=== PATIENT | male | born 1995 | race African-American/Black ===

== ENCOUNTER 2023-05-18 08:29 | Outpatient (AMB) | payer OTHER, SELFPAY ==
--- NOTE | 2023-05-18 08:56 | AM.OFFWIN_ITS ---
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 The patient has just and listed in Health insurance and now has a primary care provider here at this office. His 1st visit is June 08. He said it is occasionally uncomfortable but in general does not cause constant pain. He denies any swelling or penile discharge. He is sexually active but has had no difficulty or pain during intercourse. PFSH Social History Patient Tobacco Use Status: Current everyday Tobacco user Review of Systems Reports scrotal swelling (left testicular mass) Skin/Breast Reports lesions Physical Exam Vital Signs: Last Vital Signs Temp 97.6 F 05/18/23 08:57 Pulse 89 05/18/23 08:57 BP 112/70 05/18/23 08:57 Pulse Ox 99 05/18/23 08:57 Oxygen Delivery Method Room Air 05/18/23 08:57 BMI result Body Mass Index 20.2 Scrotum: scrotal mass on the left mobile, firm and tender (very mild tenderness) Testes: testicular mass on the left Assessment & Plan Assessment & Plan (1) Testicular mass: Code(s): N50.89 - Other specified disorders of the male genital organs Plan: see plan Plan This patient but will be scheduled for an ultrasound of his scrotum to examined the scrotal mass. He has a follow-up visit with his PCP June 08. This patient was discussed with Dr. Carlson Orders: Orders US scrotum Today N50.89 - Other specified disorders of the male genital organs Coding Level of Care Code New Pt Level 3 (23870) Diagnoses Testicular mass N50.89 Time Spent (min) 20
[2023-05-18 08:57] VITALS: BP 112/70; PULSE 89; TEMP 36.4; O2SAT 99; BMI 20.2
== END 2023-05-18 09:42 | disposition home or self-care (01) ==
PROVIDERS: Visit Provider Physician Assistant Medical
DX: N50.89 Other specified disorders of the male genital organs (principal)
CPT/HCPCS: 99203

== ENCOUNTER 2023-05-18 09:37 | Outpatient (REF) | payer OTHER, SELFPAY ==
--- NOTE | ~2023-05-18 | US_ITS ---
EXAMINATION: US SCROTUM CLINICAL INFORMATION: Left testicular mass. COMPARISON: None available. TECHNIQUE: A sonogram of the scrotum was performed assessing tamayo-scale appearance and color Doppler flow. Spectral Doppler analysis of the arterial and venous flow were performed in the testes bilaterally. FINDINGS: RIGHT: Right testicle measures 4.8 x 2.04 x 3.35 cm, volume 15.7 mL. No focal testicular parenchymal lesions are visualized. There are punctate echogenic foci question microlithiasis.. Spectral Doppler analysis of the arterial and venous flow is normal in the right testis. Right epididymal head is normal in size. There is a small hydrocele. No varicocele is seen. Right epididymal Dopple low is LEFT: Left testicle measures 4. 3.8 x 1.8 x 3.20 cm and volume 11.6 mL. No focal testicular parenchymal lesions are visualized. There are punctate scattered echogenic areas question microlithiasis. Spectral Doppler analysis of the arterial and venous flow is in the left testis. Left epididymalnormal in size.l in size. There is a small left hydrocele. No or varicocele is seen. Left epididymal Doppler flow is normal. There is a hypoechoic area adjacent to the left epidural head measuring 0.90 x 0.93 x 0.95 cm question complex exophytic epididymal cyst. US/US scrotum Impression: Bilateral microlithiasis but otherwise normal vascular flow to both testes on Doppler exam. Bilateral small hydroceles. Complex lesion adjacent to the left epididymal head, ? Complex exophytic epididymal cyst
== END 2023-05-18 09:38 | disposition home or self-care (01) ==
LOC: HO.HMGCX 09:37
PROVIDERS: PCP Nurse Practitioner Primary Care; Visit Provider Physician Assistant Medical
DX: N50.89 Other specified disorders of the male genital organs (principal)
CPT/HCPCS: 76870

== ENCOUNTER 2023-06-17 15:18 | Outpatient (AMB) | payer OTHER, SELFPAY ==
[2023-06-17 15:21] VITALS: BP 124/76; PULSE 93; O2SAT 98; BMI 20.2
--- NOTE | 2023-06-17 15:21 | MHC.PC.OV ---
Vital Signs 06/17/23 15:21 Height 6 ft Weight 149 lb BMI 20.2 BP 124/76 Blood Pressure Location Rt brachial Position Sitting Pulse 93 Pulse Source Pulse Oximeter Pulse Oximetry (%) 98 Oxygen Delivery Method Room Air Intake Visit Reasons: Est. Care Intake Note: Pt is here to est care Allergies No Known Allergies Allergy (Verified 06/17/23 15:32) Medication List - Last Reconciled 06/17/23 by NIECY Mendoza No Known Home Meds Tobacco use date assessed: 06/17/23 Dental Screening Dental Screen Date: 06/17/23 Did you have a dental visit in the last 12 months?: No Did you have a dental problem in the last 6 months where you did not have access to dental care?: No Was dental information given to patient?: No HPI HPI Comments History of Present Illness Details Patient is a 27-year-old male who I am meeting for the 1st time having a physical exam. 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 He states that for his job 6 years ago he had to get up-to-date on immunizations. Declining influenza vaccine today. He was seen in our walk-in clinic 2 weeks prior for testicular mass on his left testicle. He had ultrasound which demonstrated bilateral hydrocele and question of epididymal cyst. Patient states that he does not have discomfort unless he is sitting or lying down in certain positions. He states generally he does not have any discomfort. Patient is not have any dysuria or discharge. Patient denies fever, numbness, tingling. Patient does not use any medication for relief. Will refer to Urology due to question of epididymal cyst. Patient states he is also experiencing episodes of anxiety during the day. He says he specially feels anxious during work. Denies SI/HI. States that he is able to eat and drink, and he is able to get sleep. He states that anxiety can happen regardless of the situation. He is normally just deals with anxiety but is experiencing them with greater frequency. Patient would like to start medication for this. Will start on Lexapro. Patient will have full labs drawn. Will follow-up in 6 weeks. 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 1. Little interest or pleasure in doing things: not at all 2. Feeling down, depressed, or hopeless: more than half the days 3. Trouble falling or staying asleep, or sleeping too much: several days 4. Feeling tired or having little energy: several days 5. Poor appetite or overeating: not at all 6. Feeling bad about yourself - or that you are a failure or have let yourself or your family down: several days 7. Trouble concentrating on things, such as reading the newspaper or watching television: not at all 8. Moving or speaking so slowly that other people could have noticed. Or the opposite - being so fidgety or restless that you have been moving around a lot more than usual: not at all 9. Thoughts that you would be better off or of hurting yourself in some way: not at all Total score: 5 Depression Screening Interpretation: Negative Depression Screening Done: Yes Source: Developed by Drs. Leroy Kraft, Gloria Rodgers, Tray Palencia and colleagues, with an educational abisai from [employer]. Thrive Questionnaire Date Thrive assessed: 06/17/23 I am a: Patient What is your living situation today?: I have a steady place to live Within the past 12 months, did the food you bought not last and you didn't have the money to get more?: Never true Within the past 12 months, did you worry whether your food would run out before you got money to buy more?: Never true Do you have trouble paying for medicines?: No Do you have trouble getting transportation to medical appointments?: No Do you have trouble paying your heating and electricity bill?: No Do you have trouble taking care of your child, family member or friend?: No Do you have trouble with day-to-day activities such as bathing, preparing meals, shopping, managing finances, etc.?: No Are you currently unemployed and looking for a job?: No Are you interested in more education?: Yes THRIVE Score: 0 AUDIT C Alcohol Use Questionnaire (AUDIT-C) 1. How often do you have a drink containing alcohol?: 4 or more times a week 2. How many drinks containing alcohol do you have on a typical day when you are drinking?: 3 or 4 3. How often do you have six or more drinks on one occasion?: Monthly Total Score: 7 SHANTELLE-7 AMB Questionnaire SHANTELLE-7 Date SHANTELLE - 7 assessed: 06/17/23 Feeling nervous, anxious, or on edge: 3 = Nearly every day Not being able to stop or control worryin = Nearly every day Worrying too much about different things: 3 = Nearly every day Trouble relaxin = Not at all Being so restless that it is hard to sit still: 0 = Not at all Becoming easily annoyed or irritable: 3 = Nearly every day Feeling afraid as if something awful might happen: 1 = Several days Total SHANTELLE-7 score (0-4 normal; 5-9 mild; 10-14 moderate; 15-21 severe): 13 Source: Developed by Drs. Leroy Kraft, Gloria Rodgers, Tray Palencia and colleagues, with an educational abisai from [employer]. SHANTELLE-7 Assessment Billing SHANTELLE-7 Assessment Tool: SHANTELLE-7 Assessment 28391 (Patient starting Lexapro 5 mg.) Review of Systems Const All systems reviewed & are unremarkable except as noted in HPI and below Physical exam (Primary Care) Care Plan Goal for BP management: Vital signs reviewed stable. Tobacco/Smoking Status: Tobacco use Status Patient Tobacco Use Status Current everyday Tobacco 06/17/23 15:21 Depression Screening Interpretation: Negative Const General: no acute distress Nutritional Appearance: average body habitus Orientation/consciousness: patient oriented x3 Limitations: no limitations HENMT Head: Yes normal to inspection and Yes normocephalic Ears: TM's normal bilaterally General nose exam: Normal external nose present and Normal septum present Face and sinus: Yes normal facial exam Mouth: Normal oral and palatal mucosa present Eyes General: appearance normal, both eyes and all related structures Sclerae: sclerae normal Corneas: corneas normal Pupils: Equal, round and reactive pupils present EOM: EOMs intact bilaterally Direct Ophthalmoscopy: normal light reflex and no photophobia Neck Neck: Yes normal visual inspection, Yes full ROM and Yes no lymphadenopathy Chest Chest palpation & inspection: normal inspection of the chest Resp Effort & Inspection: normal respiratory effort Auscultation: clear to auscultation bilaterally Cardio Rate: regular rate Rhythm: regular rhythm Heart sounds: S1 normal heart sound present and S2 normal heart sound present GI Inspection: Yes normal to inspection Percussion: Yes normal to percussion Auscultation: normal bowel sounds Rectal Exam - Male: Yes deferred General: Yes no CVA tenderness Male General Exam: Yes Genital lesions present (Palpable tender mass left testicle) and Yes tenderness (Left testicle on palpation.) Penis: normal penis and Genital lesions present (Palpable tender mass left testicle) Meatus: meatus normal Scrotum: scrotum normal Testes: mass on the left soft and tender Back/Spine/Pelvis Back: no CVA tenderness Skin General skin exam: no rashes or lesions noted Neuro General: patient oriented x3 Cranial nerves: Yes CN's II-XII intact bilaterally and Yes Equal, round and reactive pupils present Cognition (Neuro): normal cognition Motor exam (neuro): 5/5 motor strength present throughout Extrem General: Yes normal to inspection and Yes full ROM Psych Thought process: Normal thought process present Thought content: Normal thought content present Insight: Good insight present (Psych) Judgement: Good judgement present (Psych) Assessment and Plan Assessment & Plan (1) Bilateral hydrocele: Comment: Patient educated the hydrocele normally reabsorbed into the body. Will watch and wait Code(s): N43.3 - Hydrocele, unspecified (2) Testicular mass: Comment: Patient will have Urology referral due to testicular mass on ultrasound. Question epidermal cyst? Code(s): N50.89 - Other specified disorders of the male genital organs (3) Anxiety: Comment: Patient is declining therapy at this time. Will start on Lexapro 5 mg. Patient has been educated on side effects of these medications. Patient states he understands. Patient knows not to stop the medication abruptly. Code(s): F41.9 - Anxiety disorder, unspecified Plan: Take your medications as prescribed. If you were prescribed antibiotics today, it is important that you take your medication to their entirety, do not skip any doses, do not finish them early. Follow-up with your primary care provider this week. Return to the emergency department with new or worsening symptoms. Such as fevers, chills, chest pain, shortness of breath, nausea, vomiting, dizziness, headache, vision changes, lethargy In case of emergency call 911 Plan Six week follow-up for medication check Orders: Orders Comprehensive Met. Panel Today Z91.89 - Other specified personal risk factors, not elsewhere classified Vitamin B6 Today Z13.21 - Encounter for screening for nutritional disorder Complete Blood Count Auto Diff Today Z13.0 - Encounter for screening for diseases of the blood and blood-forming organs and certain disorders involving the immune mechanism Lipid Panel Today Z13.220 - Encounter for screening for lipoid disorders Vitamin D 25-OH (D2 and D3) Today Z13.21 - Encounter for screening for nutritional disorder Vitamin B12 Today Z91.89 - Other specified personal risk factors, not elsewhere classified UA CC w/rflx Micro + Cult Today Z13.89 - Encounter for screening for other disorder TSH reflex Free T4 Today Z13.29 - Encounter for screening for other suspected endocrine disorder Medications: New escitalopram oxalate (Lexapro) 5 mg PO DAILY 90 tabs 0RF Coding Level of Care Code Est Pt Prev Care 18-39y(01924) Diagnoses Bilateral hydrocele N43.3 Testicular mass N50.89 Anxiety F41.9 Additional Codes SHANTELLE-7 Assessment Billing - SHANTELLE-7 Assessment Tool: SHANTELLE-7 Assessment 89394 ([id number]) Time Spent (min) 35
== END 2023-06-17 15:56 | disposition home or self-care (01) ==
PROVIDERS: PCP Nurse Practitioner Primary Care; Visit Provider Nurse Practitioner Primary Care
DX: Z00.00 Encounter for general adult medical examination without abnormal findings (principal); N43.3 Hydrocele, unspecified; N50.89 Other specified disorders of the male genital organs; F41.9 Anxiety disorder, unspecified
CPT/HCPCS: 99395

== ENCOUNTER → 2024-09-25 06:37 | Outpatient (BNV) | payer OTHER, SELFPAY | PROVIDERS: Emergency Provider Emergency Medicine; PCP Nurse Practitioner Primary Care; Visit Provider Radiology Diagnostic Radiology | DX: S69.91XA Unspecified injury of right wrist, hand and finger(s), initial encounter (principal) | CPT/HCPCS: 73110; 73130 ==

== ENCOUNTER 2024-09-25 07:15 | Emergency (ER) | payer OTHER, SELFPAY ==
--- NOTE | ~2024-09-25 | XR_ITS ---
EXAMINATION: XR HAND/WRIST, RIGHT CLINICAL INFORMATION: punched wall COMPARISON: None available. TECHNIQUE: PA, lateral, and oblique views of the right hand, 4 views right wrist FINDINGS: No fracture, dislocation, or suspicious bone lesion. Normal alignment. Normal joint spaces. Carpal bones intact and normally aligned . Normal soft tissues. XR/XR hand RT min 3V IMPRESSION: No acute bony or soft tissue abnormalities of the right hand and wrist. Electronically signed by: Joe Dickson MD 09/25/2024 08:04 AM EDT
--- NOTE | ~2024-09-25 | XR_ITS ---
EXAMINATION: XR HAND/WRIST, RIGHT CLINICAL INFORMATION: punched wall COMPARISON: None available. TECHNIQUE: PA, lateral, and oblique views of the right hand, 4 views right wrist FINDINGS: No fracture, dislocation, or suspicious bone lesion. Normal alignment. Normal joint spaces. Carpal bones intact and normally aligned . Normal soft tissues. XR/XR wrist RT min 3V IMPRESSION: No acute bony or soft tissue abnormalities of the right hand and wrist. Electronically signed by: Jeo Dickson MD 09/25/2024 08:04 AM EDT
[2024-09-25 07:20] VITALS: BP 133/78; PULSE 85; RESP 18; TEMP 36.4; O2SAT 100; BMI 20.2
--- NOTE | 2024-09-25 07:45 | ED_ITS ---
HPI - Extremity Problem General Chief complaint: Extremity Injury, Upper Stated complaint: R Wrist Injury 2 Days Ago Time Seen by Provider: 09/25/24 07:45 History of Present Illness ED Provider: Aislinn CHIN Narrative: The patient is an ordinarily healthy 28-year-old male who comes for evaluation of an injury to his right arm. He says that 3 days ago on Wednesday he punched a wall. He says this was accidental. He was horsing around with a friend. He says that his fist connected with a piece of dry wall and he thinks there was a stead behind the dry wall. The patient came to the emergency room on Wednesday but there was a long wait and he left without imaging or evaluation. He comes today because he has ongoing pain primarily at the wrist. 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 He does not feel he can lift anything with the hand because of pain. Related Data Previous Rx's ?Medication ?Instructions ?Recorded escitalopram oxalate 5 mg tablet 5 mg PO DAILY #90 tab s 06/17/23 (Lexapro) Allergies Allergy/AdvReac Type Severity Reaction Status Date / Time No Known Allergies Allergy Verified 09/25/24 07:22 Review of Systems Review of Systems: Yes all other systems are reviewed and are negative [facility] Family History Family History Maternal Grandmother Diabetes mellitus Social History Social History Housing: Apartment Patient Tobacco Use Status: Current everyday Tobacco user Cigarettes Per Day: 10 Smoked in Last 30 Days: Yes e-Cigarette/Vaping Use: Never Used Second Hand Smoke Exposure: No Use of substances other than those prescribed or required for medical reasons: No Advance Directives: No Advance Directives Information Provided: Yes service: Yes Current occupational status: employed 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 He is awake, alert, pleasant, cooperative. HEENT: Other: The face is symmetrical. ?Mucous membranes moist. Eyes: Other: Pupils are round equal, conjunctivae are clear, extraocular movements intact Neck: Neck: Yes normal visual inspection Resp: Effort & Inspection: normal respiratory effort Skin: Other: The skin is intact. There seems to be some mild generalized soft tissue swelling to the dorsum of the wrist. Neuro: Other: The patient is awake and alert with a normal mental status. He has intact motor and sensory function of the right hand. Extrem: Other: There is some subtle soft tissue swelling to the dorsum of the right wrist. The fingers do not appear injured. The metacarpals did not appear obviously injured. He has been generalized tenderness to the dorsum of the wrist and some slight snuffbox tenderness. Medical Decision Making Medical Decision Making MDM Narrative: The patient is a very pleasant an ordinarily healthy 28-year-old male who is here for evaluation of right wrist pain after punching wall 3 days ago. X-rays of the hand and wrist were done which are negative. He has some mild swelling to the dorsum of the wrist and some generalized tenderness including some mild tenderness to the snuffbox area. Out of an abundance of caution he was placed in a thumb spica splint and should follow up with Orthopedics. He was given a work note. Procedures Orthopedic Splinting/Casting Injury #1: Side: right Upper Extremity Injury Location: wrist Upper Extremity Immobilizer: thumb spica Additional Comments: Splint was fashioned using cast padding, Orthoglass, and Stephen bandages. The patient tolerated the application of the splint well and remained neurovascularly intact after application of the splint. Discharge Plan Discharge Clinical Impression: Right wrist sprain, Tenderness of anatomical snuffbox Patient Disposition: Home, Self-Care Instructions: Wrist Injury (ED) Additional Instructions: The x-rays of your right wrist are negative. You seemed to have some tenderness over a portion of the wrist that we call the ?snuffbox. ? This is associated with the possibility of an injury to a small bone called the navicular bone ( also called the scaphoid bone). Therefore in order to protect against this possibility you has been placed in a splint which we call a thumb spica splint. Please wear the splint until you follow up with the orthopedic office for additional evaluation and are cleared for removal of the splint. Keep the hand elevated. Avoid activities which exacerbate your pain. You may use ibuprofen and acetaminophen as needed for pain. Call the orthopedic office today for a follow up appointment in several days. Return to the emergency room if worse. Prescriptions: No Action escitalopram oxalate [Lexapro] 5 mg tablet 5 mg PO DAILY Qty: 90 0RF Referrals: [facility] [place]Provider Group] Referral Note: Wrist injury, snuffbox tenderness Stand Alone Forms: Work/School Release Print Language: Upper Sorbian
--- OUTSIDE RECORDS SUMMARY | 2024-09-25 08:21 | XMS_ITS | Clinical Summary ---
[facility] [address] [place] [address] Care Team Providers Care Data Modeler Name Role Phone Aubrey Hill MD Primary Care Provider Social History Tobacco Use Types Packs/Day Years Used Date Smoking Tobacco: Never Assessed Sex and Gender Information Value Date Recorded Sex Assigned at Not on file Legal Sex Male 8:44 PM EST Gender Identity Not on file Sexual Orientation Not on file Plan of Treatment Health Maintenance Due Date Last Done Comments DTaP,Tdap,and Td Vaccines (1 - Tdap) 11/17/2014 Hepatitis B Vaccines (1 of 3 - 19+ 3-dose series) 11/17/2014 COVID-19 Vaccine (2023-2 5 season) 2023 Influenza Vaccine (Season Ended) 2024 HIB Vaccines Aged Out No longer eligi ble based on patient's age to complete this topic HPV Vaccines Aged Out No longer eligi ble based on patient's age to complete this topic Hepatitis A Vaccines Aged Out No long er eligible based on patient's age to complete this topic IPV Vaccines Aged Out No longer eligi ble based on patient's age to complete this topic MMR Vaccines Aged Out No longer eligi ble based on patient's age to complete this topic Meningococcal ACWY Vaccine Aged Out N o longer eligible based on patient's age to complete this topic Meningococcal B Vaccine Aged Out No l onger eligible based on patient's age to complete this topic Pneumococcal Vaccine: Pediat rics (0 to 5 Years) and At-Risk Patients (6 to 64 Years) Aged Out No longer eligible b ased on patient's age to complete this topic RSV Immunization Patients Un anurag 20 months Aged Out No longer eligible b ased on patient's age to complete this topic Varicella Vaccines Aged Out No longer eligible based on patient's age to complete this topic Care Teams Data Modeler Relationship Specialty Start Date End Date Aubrey Hill MD [address] [place] [id number] PCP - General 08/21/21
[2024-09-25 08:47] VITALS: BP 130/76; PULSE 78; RESP 18; O2SAT 98
[2024-09-25 08:48] VITALS: BP 130/76; PULSE 78; RESP 18; TEMP 36.6; O2SAT 98
== END 2024-09-25 08:49 | disposition home or self-care (01) ==
PROVIDERS: Emergency Provider Emergency Medicine; PCP Nurse Practitioner Primary Care
DX: S63.501A Unspecified sprain of right wrist, initial encounter (principal); M25.531 Pain in right wrist; F17.210 Nicotine dependence, cigarettes, uncomplicated; X58.XXXA Exposure to other specified factors, initial encounter; Y93.9 Activity, unspecified; Y92.9 Unspecified place or not applicable; Y99.8 Other external cause status
CPT/HCPCS: 29130; 73100; 73110; 73120; 73130; 99284

== ENCOUNTER 2024-09-29 09:13 | Outpatient (REF) | payer OTHER, SELFPAY ==
--- NOTE | ~2024-09-29 | XR_ITS ---
EXAMINATION: XR WRIST, RIGHT CLINICAL INFORMATION: M79.641 - Pain in right hand COMPARISON: September 25, 2024. TECHNIQUE: PA, lateral, and oblique views of the right wrist. Scaphoid projection FINDINGS: Carpal bones are intact. Alignment is normal. Distal radius and ulna are intact. Metacarpal bones are intact. The included phalanges are intact. No lytic or blastic lesions. No subcutaneous emphysema. XR/XR wrist RT w scaphoid IMPRESSION: Normal x-ray, right wrist. Electronically signed by: Jonathan Cruz MD 09/29/2024 09:55 AM EDT
--- OUTSIDE RECORDS SUMMARY | 2024-09-29 09:33 | XMS_ITS | Clinical Summary ---
[facility] [address] [place] [address] Care Team Providers Care Food Service Representative Name Role Phone Aubrey Hill MD Primary [...] age to complete this topic Care Teams Food Service Representative Relationship Specialty Start Date End Date Aubrey Hill MD [address] [place] [id number] PCP - General 08/21/21
== END 2024-09-29 09:14 | disposition home or self-care (01) ==
LOC: HO.HOSX 09:13
DX: M79.641 Pain in right hand (principal)
CPT/HCPCS: 73110

== ENCOUNTER 2024-09-29 09:31 | Outpatient (AMB) | payer OTHER, SELFPAY ==
[2024-09-29 09:36] VITALS: BMI 20.2
--- NOTE | 2024-09-29 09:36 | MHC.OFFVIS ---
Vital Signs 09/29/24 09:36 Height 6 ft Weight 149 lb BMI 20.2 Intake Visit Reasons: ED f/u RT wrist injury ? scaphoid fx Intake Note: Rosa is a right hand dominant 28 year old male who presents today for an ED follow-up of a right hand wrist scaphoid fx. On 09/22/24 per ED note, patient accidentally punched a wall, injuring his hand/wrist. Seen in ED 3 days after where xrays were taken, patient was splinted, ED was concerned for scaphoid fx. Patient states having pain in lifting and twisting motion. Patient reports he has taken Advil for pain, with no relief. Denies any numbness or tingling. Allergies No Known Allergies Allergy (Verified 09/29/24 09:46) HPI HPI ED f/u RT wrist injury ? scaphoid fx: Details: Rosa is a right hand dominant 28 year old male who presents today for an ED follow-up of a right hand wrist scaphoid fx. On 09/22/24 per ED note, patient accidentally punched a wall, injuring his hand/wrist. Seen in ED 3 days after where xrays were taken, patient was splinted, ED was concerned for scaphoid fx. Patient states having pain in lifting and twisting motion. Patient reports he has taken Advil for pain, with no relief. Denies any numbness or tingling. 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 Neuro: Normal sensation of the tips of all digits of the right hand at this time Vascular: Cap refill brisk Pain: Tenderness to palpation of right ulnar styloid No tenderness to palpation of right anatomical snuffbox No tenderness to palpation of right scaphoid tubercle No tenderness to palpation of right distal radius Discomfort of the ulnar aspect of the right wrist with range of motion ROM: Full and intact range of motion of the right wrist However, there is visible and palpable snapping with pronation and supination at the ulnar styloid Stable DRUJ Skin: No lacerations or abrasions. General: No ecchymosis, erythema, or evidence of infection. Psych: Appears grossly normal Affect normal Attitude cooperative Results Reviewed Results Reviewed: X-rays obtained in the office today and independently reviewed by me, Jose Luis Molina PA-C, demonstrate no fracture or acute bony abnormality of the right wrist. Assessment & Plan Assessment & Plan (1) Subluxation of extensor carpi ulnaris tendon: Code(s): S63.093A - Other subluxation of unspecified wrist and hand, initial encounter Category: Medical Plan 1. Right ECU tendon subluxation Patient is educated about this condition Patient is educated about the typical treatment course At this time, patient is provided with a Velcro wrist splint to be worn with daytime activities and when his wrist is bothering him Patient is also referred to Dr. Frances for surgical consultation for ECU subluxation Patient is amenable to this plan Follow-up in [address] Frances for reassessment, sooner with any acute concerns Orders: Orders XR wrist RT w scaphoid Today M79.641 - Pain in right hand Coding Level of Care Code New Pt Level 3 (25396) Diagnoses Subluxation of extensor carpi ulnaris tendon S63.093A
== END 2024-09-29 10:19 | disposition home or self-care (01) ==
LOC: HO.HOS 09:32
PROVIDERS: PCP Nurse Practitioner Primary Care
DX: S63.091A Other subluxation of right wrist and hand, initial encounter (principal)
CPT/HCPCS: 99203

== ENCOUNTER → 2024-09-29 09:36 | Outpatient (BNV) | payer OTHER, SELFPAY | PROVIDERS: Visit Provider Radiology Diagnostic Radiology | DX: M79.641 Pain in right hand (principal) | CPT/HCPCS: 73110 ==

== ENCOUNTER 2024-10-13 10:11 | Outpatient (AMB) | payer OTHER, SELFPAY ==
--- NOTE | 2024-10-13 10:20 | A.OFFVIS_ITS ---
Intake Visit Reasons: OV - Right ECU Sublulation Intake Note: Rosa is a right hand dominant 28 year old male who presents today for a follow-up of a right hand wrist scaphoid fx. On 09/22/24 per ED note, patient accidentally punched a wall, injuring his hand/wrist. Seen in ED 3 days after where xrays were taken, patient was splinted, ED was concerned for scaphoid fx. Patient states having pain in lifting and twisting motion. Patient reports he has taken Advil for pain, with no relief. Denies any numbness or tingling. Last seen with Benita Amaya who provided patient with a Velcro wrist splint to be worn with daytime activities and when his wrist is bothering him . Patient reports pain with dorsal and palmar flexion Patient is also referred to Dr. Frances for surgical consultation for ECU subluxation. 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 Involves a lot of heavy repetitive lifting. On about 09/22/2024 the patient reportedly punched a wall sustaining an injury to his right wrist. There was some concern about snuffbox tenderness initially and he was referred to us for our evaluation. The patient notes that he is doing a little better but he still gets pain in the ulnar aspect of his wrist that then radiates around to the radial side of his wrist. Appreciate a clicking or snapping sensation sometimes. 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 He can make a tight fist and extend all of his digits. No locking or catching. Sensation intact to all digits and cap refill is brisk. He had no tenderness about the distal radius DRUJ or distal ulna. No snuffbox or scaphoid tubercle tenderness today. No swelling, ecchymosis or erythema. He demonstrates that he gets pain in the ulnar dorsal aspect of his wrist but that the pain also radiates across the dorsal aspect of the wrist to the radial side of the wrist. With prono-supination I appreciated a clicking sensation but did not see any actual subluxation of the ECU tendon today. Mild tenderness at the insertion of the ECU tendon Smooth wrist flexion extension and prono-supination without pain. Radiographs: 3 views of the right wrist plus a scaphoid view were obtained on 09/29/2024 and reviewed by me today in clinic. They do not appear to show any fractures or dislocations. Assessment & Plan Assessment & Plan (1) Right wrist pain: Code(s): M25.531 - Pain in right wrist Category: Medical Plan Assessment and plan: 1. Right dorsal wrist pain Etiology unclear. There is a clicking sensation but I did not appreciate any actual subluxation of the ECU tendon today. There had also been question of an occult scaphoid fracture. I am ordering an MRI to evaluate his right wrist pain. We will hopefully get this done within the next week and I will see him back to review this study with a 30 minute appointment. He will continue to wear his Velcro wrist splint which she feels is helpful. I told him to avoid any heavy lifting or forceful prono-supination at this time. We are keeping him out of work until he follows up with the MRI hopefully within 2 weeks. Orders: Orders MR wrist RT wo con Today M25.531 - Pain in right wrist Coding Level of Care Code Est Pt Level 3 (41214) Diagnoses Right wrist pain M25.531
--- OUTSIDE RECORDS SUMMARY | 2024-10-13 10:41 | XMS_ITS | Clinical Summary ---
Author Organization [facility] Address [address] [place] [address] Care Team Providers Care Disc Jockey Name Role Phone Aubrey Hill MD Primary [...] Vaccine (2023-2 5 season) 2023 Influenza Vaccine (#1) 2024 HIB Vaccines Aged Out No longer [...] 5 Years) and At-Risk Patients (6 to 49 Years) Aged Out No longer eligible b ased on patient's age to complete this topic RSV Immunization Patients Un anurag 20 months Aged Out No longer eligible b ased on patient's age to complete this topic Varicella Vaccines Aged Out No longer eligible based on patient's age to complete this topic Care Teams Disc Jockey Relationship Specialty Start Date End Date Aubrey Hill MD [address] [place] [id number] PCP - General 08/21/21
== END 2024-10-13 11:06 | disposition home or self-care (01) ==
LOC: HO.HOS 10:12
PROVIDERS: Visit Provider Orthopaedic Surgery
DX: M25.531 Pain in right wrist (principal)
CPT/HCPCS: 99213

== ENCOUNTER 2024-10-17 19:15 | Outpatient (REF) | payer OTHER, SELFPAY ==
--- NOTE | ~2024-10-17 | MR_ITS ---
CLINICAL HISTORY: M25.531 - Pain in right wrist --- Additional Notes or Special Instructions: Eval right wrist pain MR right wrist without gadolinium Comparison: 09/29/2024 Findings: No acute fractures. No pathologic bone lesions. 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 No joint effusion. There is distal radioulnar joint subluxation, acuity indeterminate. Lunotriquetral and scapholunate ligaments are intact. There is edema and loss of visualization of the extensor carpi ulnaris tendon. No other tears of the flexor or extensor tendons. No triangular fibrocartilage complex tears. There is no thickening or bowing of the flexor retinaculum. Intact median and ulnar nerves. IMPRESSION: 1. Extensor carpi ulnaris tendon tear versus tendinopathy. Clinical follow-up recommended. 2. Possible distal radioulnar joint instability. Correlate clinically. This document has been electronically signed by: Justin Arita MD on 10/17/2024 22:36:01
== END 2024-10-17 19:16 | disposition home or self-care (01) ==
LOC: HO.MRI 19:15
PROVIDERS: Visit Provider Orthopaedic Surgery
DX: M25.531 Pain in right wrist (principal)
CPT/HCPCS: 73221

== ENCOUNTER → 2024-10-17 19:21 | Outpatient (BNV) | payer OTHER, SELFPAY | PROVIDERS: Visit Provider Specialist | DX: M25.531 Pain in right wrist (principal) | CPT/HCPCS: 73221 ==

== ENCOUNTER 2024-10-31 08:36 | Outpatient (AMB) | payer OTHER, SELFPAY ==
[2024-10-31 08:42] VITALS: BMI 20.2
--- NOTE | 2024-10-31 08:42 | A.OFFVIS_ITS ---
Vital Signs 10/31/24 08:42 Height 6 ft Weight 149 lb BMI 20.2 Intake Visit Reasons: O/V RT hand MRI review Intake Note: Rosa 28 yr old right hand dominant male, presents today for his MRI review of his right wrist pain. At his last visit he was advise to continue to wear his Velcro wrist splint and to avoid any heavy lifting or forceful prono-supination at this time. He was given a letter to remain out of work until he follows up with the MRI. Currently states his pain has improved, he is able to rotate his wrist with little pain but better over all. He continues to have pain if he over uses his hand. IMPRESSION: 1. Extensor carpi ulnaris tendon tear versus tendinopathy. Clinical follow-up recommended. 2. Possible distal radioulnar joint instability. Correlate clinically. Allergies No Known Allergies Allergy (Verified 10/31/24 08:46) HPI HPI O/V RT hand MRI review: Details: Rosa is a 28 year old right hand dominant man returns for an MRI review of his right wrist pain. On ~09/22/24 the patient reportedly punched a wall sustaining an injury to his right wrist. He says he is doing better and his pain & wrist function have improved . he continues to have pain with repetitive or overuse of his wrist, but he says he can rotate his wrist somewhat without pain, improved from before. The pain is in the ulnar aspect of his wrist that then radiates around to the radial side of his wrist. Appreciate a clicking or snapping sensation sometimes. 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 Current occupational exposures/hazards: No Cognitive needs: No Hearing needs: No Vision needs: No Review of Systems Const All systems reviewed & are unremarkable except as noted in HPI and below Physical Exam Vital Signs: BMI result Body Mass Index 20.2 Const General: no acute distress and alert Orientation/consciousness: patient oriented x3 Neuro General: patient oriented x3 Extrem Other: Evaluation of Right Upper Extremity: The patient is alert, oriented, and in no acute distress Neuro: Median, Ulnar, Radial nerves motor and sensory intact Vascular: Cap refill brisk ROM: He can make a right fist with good strength and no pain No locking or catching He had no tenderness about the distal radius DRUJ or distal ulna. DRUj stable on exam No snuffbox or scaphoid tubercle tenderness today. No swelling, ecchymosis or erythema. Mild tenderness over the ECU tendon, distal to distal ulna With prono-supination I appreciated a clicking/cracking sensation but did not see any actual subluxation of the ECU tendon today. Smooth wrist flexion extension and prono-supination without pain. Radiographs: 3 views of the right wrist plus a scaphoid view were obtained on 09/29/2024 and reviewed by me today in clinic. They do not appear to show any fractures or dislocations. Right wrist MRI: Findings: No acute fractures. No pathologic bone lesions. 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 No joint effusion. There is distal radioulnar joint subluxation, acuity indeterminate. Lunotriquetral and scapholunate ligaments are intact. There is edema and loss of visualization of the extensor carpi ulnaris tendon. No other tears of the flexor or extensor tendons. No triangular fibrocartilage complex tears. There is no thickening or bowing of the flexor retinaculum. Intact median and ulnar nerves. IMPRESSION: 1. Extensor carpi ulnaris tendon tear versus tendinopathy. Clinical follow-up recommended. 2. Possible distal radioulnar joint instability. Correlate clinically. This document has been electronically signed by: Justin Arita MD on 10/17/2024 Dr. Frances impression: The ECU tendon is held well within the distal ulna groove, the subsheath does not appear torn nor the ECU subluxated. There is inflammation about the ECU tendon distal to the distal ulna. He also has slight edema at base of 2nd-4th metacarpals Psych Appearance: grossly normal Affect: normal affect Attitude: cooperative Assessment & Plan Assessment & Plan (1) Tendinopathy of right wrist: Code(s): M67.931 - Unspecified disorder of synovium and tendon, right forearm Category: Medical (2) Right wrist pain: Code(s): M25.531 - Pain in right wrist Category: Medical Plan Assessment and plan: 1. Right ECU tendinopathy There is an occassional clicking sensation but I did not appreciate any actual subluxation of the ECU tendon today. No scaphoid fracture seen on MRI ECU subsheath does not appear torn on MRI I educated him about this condition and reviewed his MRI with him I discussed operative and non-operative treatment options I recommend activity modification & bracing, no operative intervention indicated at this time He will continue to wear his Velcro wrist splint with daily activities out of t he house, particularly with heavy lifting or repetitive activities. He will discontinue his splint at home He should continue to limit any heavy lifting or forceful prono-supination at this time. He will work on gentle ROM exercises at home, out of his splint. He says there is no light duty available at his job, and he feels he is able to return to full duty at this time He was given a note for work to return without restrictions, effective 11/01/24. He should continue to wear his splint at work if necessary for the next 4 weeks. He will follow up prn Scribed for Junie Frances MD by Mohit Diaz, bio medical technician, on 10/31/24 at 9:05 AM, EST. Coding Level of Care Code Est Pt Level 4 (38621) Diagnoses Tendinopathy of right wrist M67.931 Right wrist pain M25.531
--- OUTSIDE RECORDS SUMMARY | 2024-10-31 08:55 | XMS_ITS | Clinical Summary ---
[facility] Organization [facility] Address [address] [place] [address] Care Team Providers Care School Clerk Name Role Phone Aubrey Hill MD Primary [...] - 19+ 3-dose series) 11/17/2014 COVID-19 Vaccine ( - 2023-2 5 season) 2023 Depression Screening 04/05/2024 Influenza Vaccine (#1) 2024 HIB Vaccines Aged [...] age to complete this topic Care Teams School Clerk Relationship Specialty Start Date End Date Aubrey Hill MD [address] [place] [id number] PCP - General 08/21/21
== END 2024-10-31 09:14 | disposition home or self-care (01) ==
LOC: HO.HOS 08:37
PROVIDERS: Visit Provider Orthopaedic Surgery
DX: M67.931 Unspecified disorder of synovium and tendon, right forearm (principal); M25.531 Pain in right wrist
CPT/HCPCS: 99214

== ENCOUNTER 2024-11-21 11:03 | Outpatient (AMB) | payer OTHER, SELFPAY ==
--- NOTE | 2024-11-21 11:57 | MHC.OFFVIS ---
Intake Visit Reasons: OV- Right hand Pain Intake Note: Rosa 29 yr old malepresents today for his right hand pain follow up visit. At his last visit he was advise to modify his activities , no operative intervention indicated at this time. He was also advise to continue to wear his Velcro wrist splint with daily activities out of the house, particularly with heavy lifting or repetitive activities. He will discontinue his splint at home, continue to limit any heavy lifting or forceful prono-supination at this time. He will work on gentle ROM exercises at home, out of his splint. Work status was also discussed. At the time of visit patient was given a note for work to return without restrictions, effective 11/01/24. Patient explained that no light duty is available at his job, and he feels he is able to return to full duty at this time. Currently states he has no pain or concerns. Allergies No Known Allergies Allergy (Verified 11/21/24 11:58) HPI HPI OV- Right hand Pain: Details: Rosa is a 28 year old right hand dominant man returns for his right ECU tendinopathy On ~09/22/24 the patient reportedly punched a wall sustaining an injury to his right wrist. He says he is doing well and denies any pain. He says his job does not have any light duty but he feels he is able to return. He says his work needs clearance in order for him to return. He says he is able to lift his son without pain. 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 DRUj stable on exam No snuffbox or scaphoid tubercle tenderness today. No swelling, ecchymosis or erythema. No tenderness over the ECU tendon, distal to distal ulna With prono-supination I appreciated a clicking/cracking sensation but did not see any actual subluxation of the ECU tendon today. Smooth wrist flexion extension and prono-supination without pain. Radiographs: 3 views of the right wrist plus a scaphoid view were obtained on 09/29/2024 and reviewed by me today in clinic. They do not appear to show any fractures or dislocations. Right wrist MRI: Findings: No acute fractures. No pathologic bone lesions. 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 No joint effusion. There is distal radioulnar joint subluxation, acuity indeterminate. Lunotriquetral and scapholunate ligaments are intact. There is edema and loss of visualization of the extensor carpi ulnaris tendon. No other tears of the flexor or extensor tendons. No triangular fibrocartilage complex tears. There is no thickening or bowing of the flexor retinaculum. Intact median and ulnar nerves. IMPRESSION: 1. Extensor carpi ulnaris tendon tear versus tendinopathy. Clinical follow-up recommended. 2. Possible distal radioulnar joint instability. Correlate clinically. This document has been electronically signed by: Justin Arita MD on 10/17/2024 Dr. Frances impression: The ECU tendon is held well within the distal ulna groove, the subsheath does not appear torn nor the ECU subluxated. There is inflammation about the ECU tendon distal to the distal ulna. He also has slight edema at base of 2nd-4th metacarpals Psych Appearance: grossly normal Affect: normal affect Attitude: cooperative Assessment & Plan Assessment & Plan (1) Tendinopathy of right wrist: Code(s): M67.931 - Unspecified disorder of synovium and tendon, right forearm Category: Medical (2) Right wrist pain: Code(s): M25.531 - Pain in right wrist Category: Medical Plan Assessment and plan: 1. Right ECU tendinopathy There is an occassional clicking sensation but I did not appreciate any actual subluxation of the ECU tendon today. No scaphoid fracture seen on MRI ECU subsheath does not appear torn on MRI I educated him about this condition He feels he is able to return to work without restrictions but his employer needs an updated work note I recommend activity modification, no operative intervention indicated at this time He should be mindful to not overuse his hand until he works up to his normal activity level He will discontinue his splint at this time He will work on ROM exercises at home He was given a note to return to work without restrictions effective 11/01/24, but his employer contacted the clinic here and was told by Maribel that he was to continue to take it easy around the house, and out of an abundance of care said he was to return with a 10-15lb weight limit. This resulted in his not being able to return to work and causes issues with his PFMLA. He wants to return to work and feels like he can do his job at full duty without restrictions. He was given a new note for work to return to full duty WITHOUT RESTRICTIONS, effective 11/21/24. He will follow up prn Scribed for Junie Frances MD by Mohit Diaz, medical specialist, on 11/21/24 at 12:00 PM, EST. Coding Level of Care Code Est Pt Level 3 (88718) Diagnoses Tendinopathy of right wrist M67.931 Right wrist pain M25.531
--- OUTSIDE RECORDS SUMMARY | 2024-11-21 12:36 | XMS_ITS | Clinical Summary ---
Author Organization [facility] Address [address] [place] [address] Care Team Providers Care Special Needs Babysitter Name Role Phone Aubrey Hill MD Primary Care Provider [phone] Social History Tobacco Use Types Packs/Day Years [...] age to complete this topic Care Teams Special Needs Babysitter Relationship Specialty Start Date End Date Aubrey Hill MD [address] [place] [id number] PCP - General 08/21/21
== END 2024-11-21 12:14 | disposition home or self-care (01) ==
LOC: HO.HOS 11:04
PROVIDERS: Visit Provider Orthopaedic Surgery
DX: M67.931 Unspecified disorder of synovium and tendon, right forearm (principal); M25.531 Pain in right wrist
CPT/HCPCS: 99213

== ENCOUNTER 2025-01-12 14:42 | Outpatient (AMB) | payer OTHER, SELFPAY ==
[2025-01-12 14:44] VITALS: BP 140/78; PULSE 79; O2SAT 98; BMI 20.2
--- NOTE | 2025-01-12 14:44 | A.OFFPC_ITS ---
Vital Signs 01/12/25 14:44 Height 6 ft Weight 149 lb BMI 20.2 BP 140/78 H Blood Pressure Location Lt brachial Position Sitting Pulse 79 Pulse Source Pulse Oximeter Pulse Oximetry (%) 98 Intake Visit Reasons: DAO Espinoza Intake Note: Pt is here to est care Panel Monitor Required: No Allergies No Known Allergies Allergy (Verified 01/12/25 14:44) Medication List - Last Reconciled 01/12/25 by Josefa Santos MD No Known Home Meds Tobacco use date assessed: 01/12/25 Dental Screening Dental Screen Date: 01/12/25 Did you have a dental visit in the last 12 months?: No Did you have a dental problem in the last 6 months where you did not have access to dental care?: No Was dental information given to patient?: No HPI DAO Espinoza HPI Details establish care visit The patient reports lumps in the neck and testicular region, accompanied by anxiety and alcohol cravings. History The patient is a 29-year-old male presenting with evaluation of neck and testicular lumps. Neck lump: - Initially presented with a lump in the neck. - The patient reports that the initial l ump was supposed to resolve but has noticed another lump forming. - Patient feels this condition has worse jcarlos. Lump in testicular region: - The patient reports a lump in the test icular area which is stable - Initially evaluated with ultrasound in May 2023, which showed a complex lesion adjacent to the left epididymal head. and hydrocele, Urology ref was placed but patent never went, but now he says he will go - The condition is stable but sometimes irritating. Hypertension: - Blood pressure was noted as high durin g the visit. - The patient mentions increased levels of stress due to work. Anxiety: - Patient acknowledges experiencing anxi ety, manifesting through dwelling on various matters. - Reports use of Lexapro in the past, wh ich resulted in adverse side effects like headaches. Alcohol use disorder: - Patient has been drinking since the ag e of . - Currently seeks assistance to curb alc ohol cravings, noting difficulty maintaining sobriety for more than two weeks. - Identifies as having tried Alcohol Ano nymous programs with limited success due to strong cravings. Medical History: - Anxiety - Alcohol use disorder - High blood pressure - History of testicular lump and neck moises mp Diagnostic Results: - Ultrasound in May 2023 showing bi lateral small hydrocele and complex lesion adjacent to the left epididymal head. 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 - Counseling on alcohol cessation and ma chela anxiety. Social History - Works four days a week with one day of f on Tuesdays - Recently received a promotion at work - Engages in alcohol use with intent to reduce and cease usage. - Reports some back pain likely associat ed with occupational lifting tasks. Problem List - Neck lump - Testicular lump with complex lesion ne ar left epididymal head - Essential hypertension - Anxiety disorder - Alcohol use disorder Patient Instructions - Make an appointment with urology for t he testicular lump evaluation. - Establish a follow-up with a surgical office for evaluation of the neck lump. - Attend the lab for blood work before today. - Seek assistance from Alcohol Anonymous programs and maintain regular attendance. - Use prescribed medications as directed for anxiety and alcohol craving relief. acromprostate 333 mg bid, and buspiron 10 mg tid prn - Plan healthcare appointments on when off work. - Receive a tetanus vaccine today. Review of Systems - General: No fever no chills - Neurological: No headaches no dizzin ess - Ear nose throat: No sore throat no hearing difficulty no ear pain - Cardiovascular: No syncope, no chest pain, no palpitations - Gastrointestinal: No nausea vomiting or diarrhea - Endocrine: No polyuria polydipsia no heat intolerance - Genitourinary: No dysuria - Skin: No new complaints Physical Exam General: Cooperative, healthy appearing, comfortable, no acute distress Orientation: Patient oriented x3 Head: Normal to inspection Ears: Within normal limit visually Nose: Normal external nose present Face and sinus: Normal facial exam Eyes: Appearance normal, extraocular movement intact pupils reactive Neck: Lump present Respiratory: Normal respiratory effort and able to speak in complete sentences. Clear to auscultation, no stridor Cardiovascular: S1 and S2 GI: Normal to inspection. Soft to palpation and nontender Skin: Turgor normal, no acute findings Neuro: Patient oriented x3, motor sensory intact, balance intact, tandem pass Extremities: Normal to inspection, no swelling in the ankles Back : round cyst base of neck size of aj and smaller round cyst below , no pain [facility] Surgical History No pertinent past surgical history Family History Maternal Grandmother Diabetes mellitus Social History Housing: Apartment Patient Tobacco Use Status: Current everyday Tobacco user Cigarettes Per Day: 6 Years Smoked: 15 e-Cigarette/Vaping Use: Never Used Second Hand Smoke Exposure: No service: Yes Current occupational status: employed 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 1. Little interest or pleasure in doing things: not at all 2. Feeling down, depressed, or hopeless: not at all 3. Trouble falling or staying asleep, or sleeping too much: nearly every day 4. Feeling tired or having little energy: nearly every day 5. Poor appetite or overeating: not at all 6. Feeling bad about yourself - or that you are a failure or have let yourself or your family down: not at all 7. Trouble concentrating on things, such as reading the newspaper or watching television: not at all 8. Moving or speaking so slowly that other people could have noticed. Or the opposite - being so fidgety or restless that you have been moving around a lot more than usual: not at all 9. Thoughts that you would be better off or of hurting yourself in some way: not at all Total score: 6 Depression Screening Interpretation: Negative Depression Screening Done: Yes 06753 - PHQ-9 Billing: Yes Source: Developed by Drs. Leroy Kraft, Gloria Rodgers, Tray Palencia and colleagues, with an educational abisai from [employer]. Thrive Questionnaire Date Thrive assessed: 01/12/25 I am a: Patient What is your living situation today?: I have a steady place to live Within the past 12 months, did the food you bought not last and you didn't have the money to get more?: Never true Within the past 12 months, did you worry whether your food would run out before you got money to buy more?: Never true Do you have trouble paying for medicines?: I choose not to answer this question Do you have trouble getting transportation to medical appointments?: No Do you have trouble paying your heating and electricity bill?: No Do you have trouble taking care of your child, family member or friend?: No Do you have trouble with day-to-day activities such as bathing, preparing meals, shopping, managing finances, etc.?: No Are you currently unemployed and looking for a job?: No Are you interested in more education?: No Please select the resources that you would like help with: None Currently or been in a relationship where the following occur: No concerns reported THRIVE Score: 0 AUDIT C Alcohol Use Questionnaire (AUDIT-C) 1. How often do you have a drink containing alcohol?: 4 or more times a week 2. How many drinks containing alcohol do you have on a typical day when you are drinking?: 3 or 4 3. How often do you have six or more drinks on one occasion?: Daily or almost daily Total Score: 9 Score Reviewed/Action Taken: Yes SHANTELLE-7 AMB Questionnaire SHANTELLE-7 Date SHANTELLE - 7 assessed: 01/12/25 Feeling nervous, anxious, or on edge: 3 = Nearly every day Not being able to stop or control worryin = Nearly every day Worrying too much about different things: 3 = Nearly every day Trouble relaxin = Not at all Being so restless that it is hard to sit still: 0 = Not at all Becoming easily annoyed or irritable: 1 = Several days Feeling afraid as if something awful might happen: 0 = Not at all Total SHANTELLE-7 score (0-4 normal; 5-9 mild; 10-14 moderate; 15-21 severe): 10 Source: Developed by Drs. Leroy Kraft, Gloria Rodgers, Tray Palencia and colleagues, with an educational abisai from [employer]. SHANTELLE-7 Assessment Billing SHANTELLE-7 Assessment Tool: SHANTELLE-7 Assessment 70081 Physical exam (Primary Care) Vital Signs: Last Vital Signs Pulse 79 01/12/25 14:44 BP 140/78 H 01/12/25 14:44 Pulse Ox 98 01/12/25 14:44 BMI result Body Mass Index 20.2 Tobacco/Smoking Status: Tobacco use Status Tobacco use date assessed 01/12/25 01/12/25 14:45 Patient Tobacco Use Status Current everyday Tobacco 01/12/25 14:45 e-Cigarette/Vaping Use Never Used 01/12/25 14:45 PHQ-9: PHQ-9 Score PHQ-9: Total score 6 01/12/25 15:13 Depression Screening Interpretation: Negative Thrive Assessment: Date of Thrive Assessment Date Thrive assessed 01/12/25 01/12/25 14:45 Currently or been in a relationship where the following occur: No concerns reported Immunizations Boostrix Tdap 2.5 Lf unit-8 mcg-5 Lf/0.5 mL intramuscular syringe Performing Provider: Josefa Santos MD Performing Location: [facility] Administered by: Stewart Pearl CMA on 01/12/25 15:12 Dose Route Admin Location Dispensed Lot Number Expiration Date NDC Naturopathic Doctor 0.5 mL IM Right Deltoid 0.5 mL [id number] 05/26/26 [id number] [employer] FTB[employer] Total Dispensed Waste 0.5 mL 0 % VIS Given Date VIS Provided VIS Publication Date 01/12/25 Single Vaccine 20 Eligibility Eligibility Date Funding Source Not [facility] Eligible 01/12/25 Private Coding Level of Care Code New Pt Level 4 (63885) Diagnoses Establishing care with new doctor, encounter for Z76.89 Bilateral hydrocele N43.3 Testicular mass N50.89 Anxiety, generalized F41.1 Alcoholism F10.20 Cyst of skin and subcutaneous tissue L72.0 Additional Codes SHANTELLE-7 Assessment Billing - SHANTELLE-7 Assessment Tool: SHANTELLE-7 Assessment 09171 ([id number]) PHQ-9 - 78663 - PHQ-9 Billing: Yes ([id number]) Comment Assessment & Plan Assessment & Plan (1) Establishing care with new doctor, encounter for: Code(s): Z76.89 - Persons encountering health services in other specified circumstances Category: Medical (2) Bilateral hydrocele: Comment: Patient educated the hydrocele normally reabsorbed into the body. Will watch and wait Code(s): N43.3 - Hydrocele, unspecified Category: Medical (3) Testicular mass: Comment: Patient will have Urology referral due to testicular mass on ultrasound. Question epidermal cyst? Code(s): N50.89 - Other specified disorders of the male genital organs Category: Medical (4) Anxiety, generalized: Code(s): F41.1 - Generalized anxiety disorder Category: Medical (5) Alcoholism: Code(s): F10.20 - Alcohol dependence, uncomplicated Category: Medical (6) Cyst of skin and subcutaneous tissue: Code(s): L72.0 - Epidermal cyst Category: Medical Plan establish care visit The patient reports lumps in the neck and testicular region, accompanied by anxiety and alcohol cravings. History The patient is a 29-year-old male presenting with evaluation of neck and testicular lumps. Neck lump: - Initially presented with a lump in the neck. - The patient reports that the initial lump was supposed to resolve but has noticed another lump forming. - Patient feels this condition has worsened. Lump in testicular region: - The patient reports a lump in the testicular area which is stable - Initially evaluated with ultrasound in May 2023, which showed a complex lesion adjacent to the left epididymal head. and hydrocele, Urology ref was placed but patent never went, but now he says he will go - The condition is stable but sometimes irritating. Hypertension: - Blood pressure was noted as high during the visit. - The patient mentions increased levels of stress due to work. Anxiety: - Patient acknowledges experiencing anxiety, manifesting through dwelling on various matters. - Reports use of Lexapro in the past, which resulted in adverse side effects like headaches. Alcohol use disorder: - Patient has been drinking since the age of 17. - Currently seeks assistance to curb alcohol cravings, noting difficulty maintaining sobriety for more than two weeks. - Identifies as having tried Alcohol Anonymous programs with limited success due to strong cravings. Medical History: - Anxiety - Alcohol use disorder - High blood pressure - History of testicular lump and neck lump Diagnostic Results: - Ultrasound in May 2023 showing bilateral small hydrocele and complex lesion adjacent to the left epididymal head. 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 - Counseling on alcohol cessation and managing anxiety. Social History - Works four days a week with one day off on Tuesdays - Recently received a promotion at work - Engages in alcohol use with intent to reduce and cease usage. - Reports some back pain likely associated with occupational lifting tasks. Problem List - Neck lump - Testicular lump with complex lesion near left epididymal head - Essential hypertension - Anxiety disorder - Alcohol use disorder Patient Instructions - Make an appointment with urology for the testicular lump evaluation. - Establish a follow-up with a surgical office for evaluation of the neck lump. - Attend the lab for blood work before leaving today. - Seek assistance from Alcohol Anonymous programs and maintain regular attendance. - Use prescribed medications as directed for anxiety and alcohol craving relief. acromprostate 333 mg bid, and buspiron 10 mg tid prn - Plan healthcare appointments on Tuesdays when off work. - Receive a tetanus vaccine today. f/u 3 wks Orders: Orders Comprehensive Met. Panel Today F41.1 - Generalized anxiety disorder, N43.3 - Hydrocele, unspecified, N50.89 - Other specified disorders of the male genital organs, Z76.89 - Persons encountering health services in other specified circumstances TSH reflex Free T4 Today F41.1 - Generalized anxiety disorder, N43.3 - Hydrocele, unspecified, N50.89 - Other specified disorders of the male genital organs, Z76.89 - Persons encountering health services in other specified circumstances TDaP Immunization Today Z23 - Encounter for immunization Complete Blood Count Auto Diff Today F41.1 - Generalized anxiety disorder, N43.3 - Hydrocele, unspecified, N50.89 - Other specified disorders of the male genital organs, Z76.89 - Persons encountering health services in other specified circumstances LDL Cholesterol Direct Today F41.1 - Generalized anxiety disorder, N43.3 - Hydrocele, unspecified, N50.89 - Other specified disorders of the male genital organs, Z76.89 - Persons encountering health services in other specified circumstances Referrals Urology Referral N43.3 - Hydrocele, unspecified, N50.89 - Other specified disorders of the male genital organs General Surgery Referral L72.0 - Epidermal cyst Medications: New acamprosate administer with mid-day and evening meals 333 mg PO BID 60 tabs 0RF to stop alcohol buspirone 10 mg PO TID PRN 60 tabs 0RF anxiety 30 days
== END 2025-01-12 15:11 | disposition home or self-care (01) ==
LOC: HO.HMCC 14:43
PROVIDERS: Visit Provider Internal Medicine
DX: Z76.89 Persons encountering health services in other specified circumstances (principal); N43.3 Hydrocele, unspecified; N50.89 Other specified disorders of the male genital organs; F41.1 Generalized anxiety disorder; F10.20 Alcohol dependence, uncomplicated; L72.0 Epidermal cyst; Z23 Encounter for immunization

== ENCOUNTER 2025-01-12 14:42 | Outpatient (REF) | payer OTHER, SELFPAY ==
[2025-01-12 16:29] LABS: MANUAL DIFF FLAG NO
[2025-01-12 16:41] LABS: Hematocrit 40.9 % (42.0-52.0); Hemoglobin 13.1 g/dl (14.0-18.0); Imm Gran Abs Auto 0.02 X10*3/uL (0.00-0.03); Imm Gran Pct Auto 0.3 % (0.0-0.4); Lymphocytes Absolute Auto 2.6 X10*3/uL (1.2-4.9); Mean Corpuscular HGB Conc 32.0 g/dl (31.0-36.0); Mean Corpuscular Hemoglobin 26.9 pg (27.0-33.0); Mean Corpuscular Volume 84.0 fL (80.0-98.0); NRBC Abs Auto 0.000 X10*3/uL (0.0-0.012); NRBC Pct Auto 0.0 /100WBC (0.0-0.2); Platelet Count 262 X10*3/uL (160-400); Red Blood Count 4.87 X10*6/uL (4.60-5.80); White Blood Count 7.3 X10*3/uL (4.8-10.8)
[2025-01-12 17:26] LABS: Alanine Aminotransferase 43 U/L (0-40); Albumin Level 4.8 g/dL (3.5-5.0); Alkaline Phosphatase 66 U/L (39-117); Anion Gap 13 (12-20); Aspartate Amino Transferase 26 U/L (5-37); Blood Urea Nitrogen 13 mg/dL (9-16); Calcium 9.4 mg/dL (8.4-10.2); Carbon Dioxide 25 mmol/L (22-29); Chloride 107 mmol/L (96-108); Estimated Glomerular Filt Rate > 60; Potassium 4.0 mmol/L (3.3-5.1); Sodium 141 mmol/L (135-145); Total Protein 7.6 g/dL (6.5-8.0)
== END 2025-01-12 14:43 | disposition home or self-care (01) ==
LOC: HO.HMGCLDS 14:42
PROVIDERS: PCP Internal Medicine; Visit Provider Internal Medicine
DX: F41.1 Generalized anxiety disorder (principal); N43.3 Hydrocele, unspecified; N50.89 Other specified disorders of the male genital organs; I10 Essential (primary) hypertension; F10.20 Alcohol dependence, uncomplicated; L72.0 Epidermal cyst; Z76.89 Persons encountering health services in other specified circumstances; Z23 Encounter for immunization
CPT/HCPCS: 36415; 80053; 83721; 84443; 85025; 90471; 90715; 96127